=== PATIENT | male | born 1985 | race Caucasian/White ===

== ENCOUNTER 2020-10-04 20:22 | Emergency (ER) | payer MEDICAID ==
[~2020-10-04] VITALS: Ht 172.7 cm; Wt 68.0 kg
[2020-10-04] MEDS ORDERED: diphenhydrAMINE HCL 50 MG/ML VIAL IM ONE (20:30)
[2020-10-04] MEDS ORDERED: HALOPERIDOL LACTATE INJ 5 MG/ML VIAL IM ONE (20:30)
[2020-10-04] MEDS ORDERED: diphenhydrAMINE HCL 50 MG/ML VIAL ONE (20:32)
[2020-10-04] MEDS ORDERED: HALOPERIDOL LACTATE INJ 5 MG/ML VIAL ONE (20:33)
[2020-10-04] MEDS ORDERED: LIDOCAINE 2% JEL UROJET 10 ML MM ONE (20:33)
--- NOTE | 2020-10-04 20:38 | NUR ---
PATIENT CAME TO ER BED 15 BIB [facility] C/O AGITATION. 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 PATIENT RECEIVED 10MG OF IM VERSED ON THE FIELD. PATIENT UNABLE TO PROVIDE DETAIL INFORMATION ABOUT SELF. PATIENT IS SCREAMING AND AGITATED. PATIENT IS AWAKE, ABLE TO ANSWER QUESTIONS. PATIENT DENIES USING DRUGS. PATIENT STATES, "I WANT A CIGARETTE". CONNECTED TO MONITOR. SITTER AT BEDSIDE.
[2020-10-04 20:39] LABS: BASOPHILS # (AUTO) 0.1 /CMM (0.0-0.2); BASOPHILS % (AUTO) 0.8 % (0.0-2.0); EOSINOPHILS % (AUTO) 0.7 % (0.0-6.0); HEMATOCRIT 47 % (39-51); HEMOGLOBIN 15.6 g/dL (13.5-17.5); LYMPHOCYTES # (AUTO) 3.1 /CMM (0.8-4.8); MEAN CORPUSCULAR HGB CONC 33 g/dl (31.0-36.0); MEAN CORPUSCULAR VOLUME 94 fL (80-96); MONOCYTES # (AUTO) 1.1 /CMM (0.1-1.30); MONOCYTES % (AUTO) 8.5 % (2.0-12.0); NEUTROPHILS # (AUTO) 8.6 /CMM (1.8-8.9); PLATELET COUNT (AUTO) 311 /CMM (150-450); RED BLOOD CELL COUNT(AUTO) 5.02 MIL/uL (4.5-6.0); WHITE BLOOD COUNT (AUTO) 13.1 K/uL (4.3-11.0)
[2020-10-04 20:52] LABS: BILIRUBIN,URINE Negative (NEGATIVE); BLOOD, URINE Trace-intact Ery/uL (NEGATIVE); COLOR,URINE YELLOW (YELLOW); LEUKOCYTE ESTERASE ,URINE Negative (NEGATIVE); NITRITE, URINE Negative (NEGATIVE); PH,URINE 5.5 (5.0-8.0); PROTEIN,URINE Negative (NEGATIVE); UGLUCOSE Negative (NEGATIVE); UROBILINOGEN,URINE 0.2 EU/dL (0.2)
[2020-10-04 20:54] LABS: CALCIUM, SERUM 10.4 mg/dL (8.5-10.1); CARBON DIOXIDE 24 mmol/L (21-32); CHLORIDE 98 mmol/L (98-107); GLUCOSE 111 mg/dL (74-106); POTASSIUM 4.2 mmol/L (3.5-5.1); SODIUM SERUM 137 mmol/L (136-145); UREA NITROGEN, BLOOD 22 mg/dL (7-18)
[2020-10-04 21:00] LABS: ALANINE AMINOTRANSFERASE 43 U/L (12-78); ALBUMIN 4.4 g/dL (3.4-5.0); ALCOHOL, BLOOD < 3 mg/dL (0-0); ALKALINE PHOSPHATASE 75 U/L (46-116); ASPARTATE AMINOTRANSFERASE 33 U/L (15-37); BILIRUBIN,DIRECT 0.2 mg/dL (0.0-0.2); BILIRUBIN,TOTAL 0.6 mg/dL (0.2-1.0); TOTAL PROTEIN, SERUM 8.7 g/dL (6.4-8.2)
[2020-10-04 21:24] LABS: ACETAMINOPHEN < 2 ug/ml (10-30)
--- NOTE | 2020-10-04 22:00 | NUR ---
COVID SWAB COLLECTED AND SENT TO THE LAB.
--- NOTE | 2020-10-04 22:06 | NUR ---
Patient is resting comfortably in bed with eyes closed. Easily aroused. VSS
[2020-10-04 22:08] LABS: BACTERIA,URINE Few /HPF (None Seen); RBC,URINE 0-2 /HPF (0-2); WBC,URINE 0-2 /HPF (0-3)
[2020-10-04 22:09] LABS: SQUAMOUS EPITHELIAL CELL,UR Rare /HPF (None Seen)
--- NOTE | 2020-10-04 22:35 | NUR ---
LAB CALLED REGARDING NEGATIVE COVID RESULT.
--- NOTE | 2020-10-05 01:11 | NUR ---
PT RESTING COMFORTABLY IN BED. VSS. NO ACUTE DISTRESS NOTED. SITTER AT BEDSIDE FOR SAFETY
--- NOTE | 2020-10-05 05:03 | NUR ---
PT AAOX4 NO ACUTE DISTRESS NOTED, RESP EVEN AND UNLABORED. PT AMBULATORY TO THE BATHROOM WITH STEADY GAIT NOTED. PT DENIES SI/HI. PT STATES WHEN ASKED IF HE FEELS SUICIDAL "IF I'M SUICIDAL I WONT BE HERE [facility], OF COURSE I'M NOT."
--- NOTE | 2020-10-05 05:43 | NUR ---
PT REFUSE TO SIGN ACI AND HOMELESS WAIVER. PT STATES "FUCK YOUR PAPERWORK, I'M NOT SIGNING SHIT FROM YOU GUYS." PT AMBULATORY WITH STEADY GAIT NOTED.
[2020-10-05 05:49] VITALS: BP 132/64
== END 2020-10-05 05:53 | disposition home or self-care (01) ==
LOC: EDBD 20:27 → ER 20:27
DX: F19.159 Other psychoactive substance abuse with psychoactive substance-induced psychotic disorder, unspecified (principal); Z20.828 Contact with and (suspected) exposure to other viral communicable diseases
CPT/HCPCS: 36415; 80048; 80076; 80299; 80307; 80320; 81001; 85025; 87426; 96372 ×2; 99285; C9803; J1200; J1630; J3490; G0480